=== PATIENT | male | born 1985 | race Caucasian/White ===

== ENCOUNTER 2020-10-19 17:20 | Emergency (ER) | payer OTHER ==
[2020-10-19] MEDS ORDERED: ULTRAM50 M1 PO (20:03)
[2020-10-19] MEDS ORDERED: AMOXICILLIN500 MG PO (20:03)
[2020-10-19 20:06] VITALS: BP 115/78
== END 2020-10-19 20:00 | disposition home or self-care (01) | DRG 914 ==
LOC: ED 17:20
PROC: 0HCGXZZ Extirpation of Matter from Left Hand Skin, External Approach (ICD-10-PCS; principal; 2020-10-19)
DX: S61.442A Puncture wound with foreign body of left hand, initial encounter (principal); S13.9XXA Sprain of joints and ligaments of unspecified parts of neck, initial encounter; V43.51XA Car driver injured in collision with sport utility vehicle in traffic accident, initial encounter; Y99.0 Civilian activity done for income or pay